=== PATIENT | male | born 1980 ===

== ENCOUNTER 2022-03-08 18:52 | Emergency (ER) | payer SELFPAY ==
[2022-03-08 19:08] VITALS: BP 129/77; PULSE 81; TEMP 98.6; BMI 28.5
[2022-03-08] MEDS ORDERED: KETOROLAC TROMETHAMINE 30 MG/1 ML VIAL IM ONE (20:25)
[2022-03-08] MEDS ORDERED: KETOROLAC TROMETHAMINE 30 MG/1 ML VIAL ONE (21:06)
== END 2022-03-08 21:25 | disposition home or self-care (01) ==
LOC: JER 18:52 → JERFT 18:52
PROC: 3E023GC Introduction of Other Therapeutic Substance into Muscle, Percutaneous Approach (ICD-10-PCS; principal; 2022-03-08)
DX: S83.91XA Sprain of unspecified site of right knee, initial encounter (principal); W19.XXXA Unspecified fall, initial encounter
CPT/HCPCS: 73562-TC-RT-FY; 73610-TC-RT-FY; 99284-25